=== PATIENT | male | born 1945 ===

== ENCOUNTER 2023-06-21 12:45 | Inpatient (IN) | payer OTHER ==
[~2023-06-21] VITALS: Ht 175.3 cm; Wt 83.0 kg
[~2023-06-21 12:45] MED LIST: PREVACID30 MG PO
[2023-06-22] MEDS ORDERED: GLIMEPIRIDE4 MG (09:00)
[2023-06-22] MEDS ORDERED: JANUMET 50-1,01 EACH PO (09:01)
[2023-06-22] MEDS ORDERED: AMLODIPINE BESY10 MG PO (09:01)
[2023-06-26 15:46] LABS: HEMATOCRIT 39.9 % (39.0-48.0); HEMOGLOBIN 13.3 g/dL (13-16.00); MEAN CELL VOLUME 94.3 fL (80.0-100.00); MEAN CORPUSCULAR HEMOGLOBIN 31.3 pg (27.00-32.0); MEAN CORPUSCULAR HGB CONC 33.2 g/dl (32.0-36.0); PLATELET COUNT 182 K/uL (150-450); RED BLOOD COUNT 4.23 M/uL (4.00-6.00); RED CELL DISTRIBUTION WIDTH 13.3 % (11.5-14.5)
[2023-06-26 20:24] LABS: ALBUMIN 3.6 gm/dL (3.4-5.0); CALCIUM 9.2 mg/dL (8.5-10.1); CREATININE SERUM 1.21 mg/dL (0.70-1.30); GFR 58.46; MAGNESIUM 2.1 mg/dL (1.8-2.4); PHOSPHOROUS 3.1 mg/dL (2.5-4.9); POTASSIUM 4.27 mEq/L (3.5-5.1)
[2023-06-27 07:35] LABS: HEMATOCRIT 37.3 % (39.0-48.0); HEMOGLOBIN 12.7 g/dL (13-16.00); MEAN CELL VOLUME 94.8 fL (80.0-100.00); MEAN CORPUSCULAR HEMOGLOBIN 32.3 pg (27.00-32.0); PLATELET COUNT 158 K/uL (150-450); RED BLOOD COUNT 3.93 M/uL (4.00-6.00); RED CELL DISTRIBUTION WIDTH 13.4 % (11.5-14.5)
[2023-06-27 08:21] LABS: ALBUMIN 3.4 gm/dL (3.4-5.0); CALCIUM 8.7 mg/dL (8.5-10.1); CREATININE SERUM 1.1 mg/dL (0.70-1.30); GFR 65.26; MAGNESIUM 1.9 mg/dL (1.8-2.4); PHOSPHOROUS 2.5 mg/dL (2.5-4.9); POTASSIUM 4.3 mEq/L (3.5-5.1)
[2023-06-27] MEDS ORDERED: TAMS0.4C PO (08:30)
[2023-06-27] MEDS ORDERED: TRAM1TAB98 PO (08:31)
== END 2023-06-27 09:41 | disposition home or self-care (01) | DRG 349 ==
LOC: O/R 06-26 07:40 → SURH 06-26 11:54 → SURG 06-26 12:45 → SURH 06-27 09:41
PROVIDERS: ADMIT Surgery; ATTEND Surgery
PROC: 0DBP8ZZ Excision of Rectum, Via Natural or Artificial Opening Endoscopic (ICD-10-PCS; 2023-06-26)
PROC: 3E0T3BZ Introduction of Anesthetic Agent into Peripheral Nerves and Plexi, Percutaneous Approach (ICD-10-PCS; 2023-06-26)
PROC: 06LY7CC Occlusion of Hemorrhoidal Plexus with Extraluminal Device, Via Natural or Artificial Opening (ICD-10-PCS; principal; 2023-06-26 17:15)
DX: C7A.026 Malignant carcinoid tumor of the rectum (principal); K64.8 Other hemorrhoids; Z20.822 Contact with and (suspected) exposure to COVID-19
CPT/HCPCS: 46945; 0184T; 64430